=== PATIENT | male | born 1950 | race Caucasian/White ===

== ENCOUNTER 2019-09-15 07:44 | Observation (INO) | payer MEDICARE, BC ==
[2019-09-15] MEDS ORDERED: Diazepam TAB(*) 5 MG ONE (09:06)
[2019-09-15] MEDS ORDERED: diPHENhydraMINE PO* 25 MG ONE (09:06)
[2019-09-15] MEDS ORDERED: Heparin(*) 1000 UNIT/ML 10 ML VIAL CATH LAB IV ONE (09:11)
[2019-09-15] MEDS ORDERED: Midazolam* 1 MG/ML 5 ML VIAL (5 MG) ONE (09:11)
[2019-09-15] MEDS ORDERED: fentaNYL* 50 MCG/ML 2 ML VIAL (100 MCG VIAL) ONE (09:11)
[2019-09-15] MEDS ORDERED: nitroGLYCERIN DRIP* 25,000 MCG/250 ML BTL ONE (09:12)
[2019-09-15] MEDS ORDERED: Heparin 2 UNITS/ML IVPREMIX* 2,000 ML IV ONE (09:12)
[2019-09-15] MEDS ORDERED: VERAPAMIL 2.5 MG/ML 2 ML VIAL ** 5 mg/2 ml ONE (09:12)
[2019-09-15] MEDS ORDERED: Lidocaine 1% INJ* 10 MG/ML 30 ML SDV ONE (09:12)
[2019-09-15] MEDS ORDERED: Iohexol 350 (CONTRAST) 200 ML MDV IV ONE (09:12)
[2019-09-15] MEDS ORDERED: Ticagrelor* 90 MG TAB PO ONE (09:55)
[2019-09-15] MEDS ORDERED: Aspirin 81 mg CHEW TAB* 81 MG TAB.CHEW ONE (10:11)
[2019-09-15] MEDS ORDERED: Acetaminophen TAB* 325 MG PO PRN (11:08)
[2019-09-15] MEDS ORDERED: Nitroglycerin TAB 0.4 MG* 0.4 MG TAB SL PRN (11:13)
[2019-09-15] MEDS ORDERED: oxyCODONE TAB* 5 MG TAB PO PRN (11:13)
[2019-09-15] MEDS ORDERED: NS 0.9% 1000 ML** 1,000 ML IV SCH (11:15)
--- NOTE | 2019-09-15 12:15 | CATH ---
"*[facility]* [address] [address] Main: [phone] [email or web address] Cardiac Catheterization Patient: Darrel Ray : 1950 Study Date: 09/15/2019 Age: 69 Gender: M HR: Height: 69 in /175.3 cm BSA: 2.4 m^2 Weight: 251 lb /114.1 kg BMI: 37.1 kg/m^2 Dumb Waiter Operator: Brian Vergara MD Ordering Physician: Brian Vergara MD Referring Physician: Brian Vergara MD, Jai Norman, --- Jai - Left coronary angiography. - Right coronary angiography. Summary: 1. LAD: Proximal vessel lesion: There is a 95% stenosis. 2. Right posterior descending: Distal vessel lesion: There is a 60% stenosis. Recommendations: 1. The patient should undergo coronary percutaneous coronary intervention. 2. PCI of the left anterior descending coronary and IVUS of the LM stenosis. History: Risk factors: Hypertension. Diabetes mellitus; on therapy with insulin. Dyslipidemia. Family history is significant for coronary artery disease. Labs, prior tests, procedures, and surgery: Stress echocardiography. Abnormal. High risk of ischemia. Blood tests: International normalized ratio (INR) of 0.92. Partial thromboplastin time (PTT) of 37 sec. Serum potassium (K) of 3.8 mEq/l. Serum sodium (Na) of 139 mEq/l. Serum creatinine (current admission) of 0.96 mg/dl. Blood urea nitrogen of 18 mg/dl. Glucose of 190 mg/dl. Platelet count of 204 th/ul. White blood cell count (WBC) of 0.01 th/ul. Red blood cell count (RBC) of 4310 th/ul. Hematocrit of 39 %. Hemoglobin (pre-procedure) of 13.2 g/dl. Study data: Study status: Cardiac cath: elective. Percutaneous coronary intervention: elective. Other percutaneous coronary intervention indication. Location: Catheterization laboratory. Consent: The risks, benefits, and alternatives to the procedure were explained to the patient and/or their healthcare practice representative and written informed consent was obtained. All available pre-procedure labs were reviewed. Height: 175.3 cm. 69 in. Weight: 114.1 kg. 251 lb. Body surface area: 2.4 m^2. Body mass index: 37.1 kg/m^2. Procedure: 1. Initial setup. The patient was brought to the laboratory. Surface ECG leads, blood pressure measurements, and pulse oximetric signals were monitored. A baseline seven lead ECG was recorded. A time out was observed per protocol. 2. Skin preparation. The planned puncture sites were prepped and draped in the usual sterile manner. 3. Local anesthesia. 1% lidocaine was administered. 4. Sedation. was administered. 5. Local anesthesia. 1% lidocaine (1 ml) was administered. 6. Right radial artery access. A 6F Glidesheath Slender sheath was advanced into the vessel. 7. Selective left coronary angiography. A 5F TIG 4.0 catheter was advanced into the left coronary vessel ostium under fluoroscopic guidance. Contrast was injected. Images were obtained in multiple projections. 8. Selective right coronary angiography. A 5F TIG 4.0 catheter was advanced into the right coronary vessel ostium under fluoroscopic guidance. Contrast was injected. Images were obtained in multiple projections. Study completion: Minimal estimated blood loss. All catheters inserted during the procedure were removed. There were no apparent complications. Administered medications: Fentanyl, 25mcg, IV. (Radial) Nitroglycerin, 300mcg, intra-arterially. (Radial) Verapamil, 3mg, intra-arterially. (Radial) Heparin, 3,000units, intra-arterially. Heparin, 4,000units, IV. BRILINTA (Ticagrelor), 180mg, PO. VERSED (Midazolam), for a total dose of 2mg, IV. NaCl 0.9% , infusion , at a rate of 100 ml/hr. Contrast: Omnipaque 350 70 ml (total dose). Radiation: Fluoroscopy dose: 237.4 cGy. Discharge: The patient tolerated the procedure well and was discharged from the lab in stable condition. Findings Coronary arteries: The coronary circulation is right dominant. Left main: Ostial lesion: There is a 30% stenosis. Eccentric ostial stenosis. LAD: Proximal vessel lesion: There is a 95% stenosis. Left circumflex: Normal, 0% stenosis. Right coronary: Normal, 0% stenosis. Right posterior descending: Distal vessel lesion: There is a 60% stenosis. Hemodynamics: + + + |Stage description |Condition 1 -| + + + |Arterial pressure s/d (m)|127/79 (101) | + + + Prepared and electronically signed by Brian Vergara MD 09/15/2019 12:15"
--- NOTE | 2019-09-15 12:43 | CATH ---
STENT REPORT: DATE OF PROCEDURE: 09/15/19 PRIMARY CARE PHYSICIAN: Dr. Sam. VICE PRESIDENT [employer]: Dr. Vergara. PROCEDURES: Stent placement LAD with IVUS guidance 4.0 x 16 Synergy drug-eluting stent. HISTORY: A 69-year-old diabetic with unstable angina, anterior wall ischemia on stress imaging. PROCEDURE ACCESS: Diagnostic by Dr. Vergara, right radial access. INTERVENTIONAL MEDICATIONS: 1. Brilinta 180 mg p.o. loading dose. 2. Heparin 6000 units IV additional. GUIDING CATHETER: 6F VL3.5 wire 0.014 [employer]. IVUS CATHETER: [employer] OptiCross 6. After IVUS, the LAD was stented with a 4 x 16 Synergy drug-eluting stent as a 4.25 was not available. It was then postdilated with a 4.5 x 15 NC balloon 16 atmospheres 50 seconds, repeat IVUS demonstrated incomplete expansion at the very proximal struts of the stent, which were then postdilated with the same balloon to 16 atmospheres for 30 seconds. He had transient angina during IVUS and stent deployment. ANGIOGRAPHY: See Dr. Vergara's report. HEMODYNAMICS: Final BP 138/85. ANGIOGRAPHY: LAD is large with moderate calcification, there is an eccentric 40% to 50% left main st enosis which was evaluated with IVUS. On 2 separate runs, the left main was 4.4 x 5.33 for 19.25 sq mm, and 3.4 x 3.7 mm for area of 9.9 sq mm with an eccentric ostial lesion. The LAD had moderate kizzy cification, distal reference was 3.13 x 3.53, area of 8.54. Proximal reference 3.4 x 3.8 with a medi a to media diameter of 4.7 mm. Post stent deployment and high pressure postdilatation, there was exc ellent apposition and expansion except for the very proximal struts, which were then postdilated, but not repeat IVUS evaluated. CONCLUSION: 1. Insignificant left main stenosis. 2. Severe LAD stenosis, excellent angiographic result with drug-eluting stent placement with high pr essure postdilatation. [id number]/[facility] #: [id number]
[2019-09-15] MEDS ORDERED: Atorvastatin* 80 MG TAB PO SCH (17:00)
[2019-09-15] MEDS: glipiZIDE TAB* 5 MG PO SCH (17:47)
[2019-09-15] MEDS: Psyllium PAK PO SCH (20:43)
[2019-09-15] MEDS: Ticagrelor* 90 MG TAB PO SCH (20:43)
[2019-09-15] MEDS: Nitroglycerin TAB 0.4 MG* 0.4 MG TAB SL PRN (23:50)
[2019-09-16] MEDS: Nitroglycerin TAB 0.4 MG* 0.4 MG TAB SL PRN ×2 (00:04→00:10)
[2019-09-16 06:07] LABS: Anion Gap 9 mmol/L (2-11); Blood Urea Nitrogen 17 mg/dL (6-24); CO2 Carbon Dioxide 25 mmol/L (22-32); Chloride 100 mmol/L (101-111); EGFR African American 83.3 (>60); EGFR Non-African American 68.9 (>60); Glucose 218 mg/dL (70-100); Potassium 3.6 mmol/L (3.5-5.0); Sodium 134 mmol/L (135-145)
[2019-09-16 06:10] LABS: Troponin I 0.03 ng/mL (<0.03)
[2019-09-16] MEDS ORDERED: Potassium Chlor TAB* 20 MEQ TAB.ER PO ONE (08:27)
--- NOTE | 2019-09-16 08:27 | ECHO ---
*[facility]* [place] [address] Fax #: [phone] Limited Transthoracic Echocardiogram Patient: Darrel Ray : 1950 Study Date: 09/16/2019 Age: 69 Gender: M HR: 81 bpm Height: 68.9 in /175 cm BSA: 2.37 m^2 Weight: 244.2 lb /111 kg BMI: 36.2 kg/m^2 *Fiberline Supervisor: Marylou Stevens [facility] *Referring Physician: * Brian Vergara MD *Reading Physician: * Brian Vergara MD Indications: Chest Pain, unspecified. Possible pericardial effusion. History: Risk factors: Hypertension. Diabetes mellitus. Dyslipidemia. Labs, prior tests, procedures, and surgery: Catheterization (09/15/2019). There was a stenosis which was treated with a stent. Conclusions Summary: - Limited echocardiogram to evaluate pericardium s/p PCI. - Pericardium, extracardiac: There is no significant pericardial effusion. - Left ventricle: Systolic function is normal. The estimated ejection fraction is 55-60%. - Right ventricle: Systolic function is normal. Study data: Transthoracic echocardiogram, limited study. Procedure: Transthoracic echocardiography was performed. Image quality was adequate. Location: Bedside. Patient status: Inpatient. Patient room number: ICU 1. Rhythm: Normal sinus rhythm. Findings Left ventricle: Systolic function is normal. The estimated ejection fraction is 55-60%. Right ventricle: Systolic function is normal. Pericardium: There is no significant pericardial effusion. Prepared and electronically signed by Brian Vergara MD 09/16/2019 08:26
[2019-09-16] MEDS: Ticagrelor* 90 MG TAB PO SCH (08:52)
[2019-09-16] MEDS: Psyllium PAK PO SCH (08:52)
[2019-09-16] MEDS: glipiZIDE TAB* 5 MG PO SCH (08:52)
[2019-09-16 08:54] LABS: ABS Eosinophils 0.2 10^3/ul (0-0.6); ABS Lymphocytes 1.4 10^3/ul (1.0-4.8); ABS Monocytes 0.5 10^3/ul (0-0.8); ABS Neutrophils 3.9 10^3/ul (1.5-7.7); Eosinophil % 3.3 %; Hematocrit 38 % (42-52); Hemoglobin 13.1 g/dL (14.0-18.0); Lymphocyte % 23.5 %; Mean Corpuscular HGB Conc 35 g/dL (31-36); Mean Corpuscular Hemoglobin 31 pg (27-31); Mean Corpuscular Volume 89 fL (80-94); Mean Platelet Volume 7.7 fL (7.4-10.4); Platelet Count 266 10^3/uL (150-450); Red Blood Count 4.23 10^6 /uL (4.18-5.48); Red Cell Distribution Width 15 % (10-15); White Blood Count 6.1 10^3/uL (3.5-10.8)
[2019-09-16] MEDS ORDERED: CMC:SitaGLIPtin (NF) 100 MG TAB PO SCH (09:00)
[2019-09-16] MEDS ORDERED: Lisinopril TAB* 10 MG PO SCH (09:00)
[2019-09-16] MEDS ORDERED: amLODIPine TAB* 5 MG PO SCH (09:00)
[2019-09-16] MEDS ORDERED: Potassium Chlor TAB* 20 MEQ TAB.ER PO SCH (09:00)
[2019-09-16] MEDS ORDERED: Allopurinol TAB* 300 MG PO SCH (09:00)
[2019-09-16] MEDS ORDERED: Metoprolol Succinate XL TAB* 25 MG PO SCH (09:00)
[2019-09-16] MEDS ORDERED: Chlorthalidone TAB* 50 MG PO SCH (09:00)
[2019-09-16 09:27] VITALS: BP 153/88
--- NOTE | 2019-09-16 12:35 | DS ---
DISCHARGE SUMMARY: DATE OF ADMISSION: 09/15/19 DATE OF DISCHARGE: ATTENDING PHYSICIAN: Dr. Brian Vergara, Cardiology.* (SUSAN SCHMID NP) PRIMARY CARE PHYSICIAN: Dr. Te Silver. PRIMARY VOICE AND DATA TECHNICIAN: Dr. Brian Vergara. ADMITTING DIAGNOSES: 1. Abnormal stress test revealing akinetic anterior wall with complaints of typical chest pain, dyspnea on exertion. 2. History of hyperlipidemia. 3. History of diabetes. 4. Possible rheumatoid arthritis, to see Rheumatology in near future. DISCHARGE DIAGNOSES: 1. 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 b.i.d., metoprolol 25 mg a day, Lipitor 80 mg p.o. q.h.s. 2. Newly found coronary artery disease, on aspirin, statin, beta-blockade therapy. 3. History of hyperlipidemia. Goal LDL is less than 70. Now on Lipitor 80 q.h.s. Will need repeat fasting lipid panel and liver function tests in 6 to 8 weeks' time. 4. Resting sinus tachycardia during admission; troponin minimally elevated consistent with recent PCI. Echo revealed preserved LVEF, no focal wall motion abnormality. He denies recurrent symptoms. ECG did not reveal acute in-stent thrombosis. He admits to holding metoprolol for 48 hours prior to procedure, this is likely related to beta-blockade withdrawal. Denies alcohol use. 5. History of diabetes. We will resume home medications, however, he was asked to hold metformin for a total of 48 hours, he may resume on 09/17/19. He is aware to get a repeat chemistry on 09/19/19. PROCEDURES PERFORMED: The patient had a cardiac catheterization performed on by Dr. Brian Vergara due to abnormal cardiovascular stress test revealing anterior akinesis. According to left heart cath report, there was: 1. LAD proximal vessel 95% stenosis. 2. Left main ostial lesion. There is 30% stenosis. 3. Left circumflex normal, no stenosis. 4. Right coronary artery, normal, no stenosis; right PDA 60% stenosis. INTERVENTIONS PERFORMED: The patient underwent successful 4.0 x 16 mm Synergy drug- eluting stent to LAD by Dr. Farhad Mitchell. COMPLICATIONS: None. Per procedure report, he had transient angina during IVUS and stent deployment. He had insignificant left main stenosis by IVUS. COURSE OF HOSPITAL STAY: This is a pleasant 69-year-old male patient, who was evaluated in our practice on 09/04/19 due to positive stress test revealing akinetic anterior wall abnormality. He has been complaining of chest pain and dyspnea on exertion, thus he was asked to present to [facility] for elective cardiac catheterization on 09/15/19. Prior to having procedure performed, he had basic blood work on 09/04/19, white count was 7.8, hemoglobin 13.2, hematocrit 39, platelets 204. INR 0.92. Sodium 139, potassium 3.8, creatinine 0.96. He had successful drug-eluting stent placement to LAD. IVUS of left main revealed nonsignificant stenosis. He has known residual 60% PDA lesion that we will treat medically. Postprocedure, he developed resting tachycardia, rate 100 to 110. Troponin was minimally elevated at 0.03 consistent with recent intervention. Echocardiogram was obtained. LVEF was preserved with no focal wall motion abnormality, has not had recurrent pain since then. He states that he held metoprolol for 48 hours total prior to procedure. This is likely related to beta-blockade withdrawal. He denies alcohol use. Labs are unremarkable. He has been up and ambulating with no complications. Right radial access site was examined. There is no evidence of hematoma, no thrill, 3 + radial pulse palpated, good sensation, cap refill less than 3. This morning' s blood work was reviewed. Sodium was 134, potassium 3.6, chloride 100, carbon dioxide 25, creatinine 1.06, troponin 0.03, glucose 218. CBC is pending. Potassium was replaced with 40 mEq total today. Pending no complications, he will be discharged home later today in stable condition. Physical examination this morning is benign. He has had occasional VPCs, no VT on telemetry. ECG this morning revealed normal sinus rhythm, rate [address] segment elevation appreciated. There was very minimal lateral ST segment depression noted. DISCHARGE CONDITION: Stable to be discharged home. Blood work to be obtained upon discharge. The patient is to have a repeat chemistry 09/19/19 to reevaluate renal function and potassium. He is requesting that this be done at [facility] because he resides in [facility]. DISCHARGE MEDICATIONS: 1. Aspirin 81 mg a day. 2. Brilinta 90 mg p.o. b.i.d. 3. Januvia 100 mg p.o. daily. 4. Potassium chloride 20 mEq daily. 5. Nitroglycerin 0.4 mg sublingual q.5 minutes p.r.n. 6. Metoprolol 25 mg a day. 7. Lisinopril 20 mg a day. 8. Glipizide 5 mg p.o. b.i.d. 9. Chlorthalidone 12.5 mg p.o. daily. 10. Lipitor 80 mg p.o. q.h.s. 11. Norvasc 10 mg a day. 12. Allopurinol 300 mg p.o. daily. 13. Tylenol 650 mg p.o. q.4h. p.r.n. FOLLOWUP APPOINTMENTS: The patient is to follow up with PCP in 7 to 10 days. He is to follow up with Dr. Brian Vergara on 09/23/19 at 2:[address] Brian Vergara has seen and examined the patient and agrees with the above assessment and plan. SUSAN SCHMID NP [id number]/[facility] #: [id number] [facility] HOSPITALEster
== END 2019-09-16 11:49 | disposition home or self-care (01) ==
LOC: CHICATH 07:44 → ICU 11:08
PROVIDERS: ADMIT Specialist; ATTEND Specialist
DX: I25.110 Atherosclerotic heart disease of native coronary artery with unstable angina pectoris (principal); R07.9 Chest pain, unspecified; R06.09 Other forms of dyspnea; E78.5 Hyperlipidemia, unspecified; E11.9 Type 2 diabetes mellitus without complications; M10.9 Gout, unspecified; Z86.73 Personal history of transient ischemic attack (TIA), and cerebral infarction without residual deficits; I10 Essential (primary) hypertension; Z79.899 Other long term (current) drug therapy; R94.39 Abnormal result of other cardiovascular function study; Z79.84 Long term (current) use of oral hypoglycemic drugs; Z79.82 Long term (current) use of aspirin
CPT/HCPCS: 36415; 80048; 84484; 85025; 85347; 87641; 93005; 93308; 93454; 96360; 96361; 99156; 99157; A9270-GY; C1725; C1769; C1876; C1887; C9600-LD; G0378; J1644; J2250; J3010

== ENCOUNTER 2022-07-15 01:47 | Inpatient (IN) ==
[2022-07-15] MEDS ORDERED: nitroGLYCERIN DRIP 25,000 MCG/250 ML BTL ONE (01:54)
[2022-07-15] MEDS ORDERED: Heparin 2 UNITS/ML 1000 mls 2,000 ML IV ONE (01:54)
[2022-07-15] MEDS ORDERED: Midazolam 5 mg/5 ml VIAL 1 mg/ml 5 ml VIAL (5 mg) ONE (01:54)
[2022-07-15] MEDS ORDERED: Heparin 1,000 UNIT/ML 10 ml (10,000 UNITS) CATHLAB/DIALYSIS ONE ×2 (01:54→02:31)
[2022-07-15] MEDS ORDERED: fentaNYL 100 mcg/2 ml 50 MCG/ML VIAL ONE ×2 (01:54→03:15)
[2022-07-15] MEDS ORDERED: niCARdipine 0.1MG/ML IVPREMIX 20 MG/200 ML BAG IV ONE (01:55)
[2022-07-15] MEDS ORDERED: Lidocaine 1% MPF 5 ML VIAL ONE (01:55)
[2022-07-15] MEDS ORDERED: Iohexol 350 (CONTRAST) 100 ML PAK IV ONE (01:56)
[2022-07-15 02:13] LABS: ABS Basophils 0.1 10^3/ul (0-0.2); ABS Eosinophils 0.2 10^3/ul (0-0.6); ABS Lymphocytes 1.2 10^3/ul (1.0-4.8); ABS Monocytes 0.6 10^3/ul (0-0.8); ABS Neutrophils 9.1 10^3/ul (1.5-7.7); Eosinophil % 1.9 %; Hematocrit 41 % (42-52); Hemoglobin 13.3 g/dL (14.0-18.0); Lymphocyte % 10.8 %; Mean Corpuscular HGB Conc 33 g/dL (31-36); Mean Corpuscular Hemoglobin 30 pg (27-31); Mean Corpuscular Volume 93 fL (80-94); Mean Platelet Volume 8.6 fL (7.4-10.4); Platelet Count 208 10^3/uL (150-450); Red Blood Count 4.39 10^6 /uL (4.18-5.48); Red Cell Distribution Width 16 % (10-15); White Blood Count 11.2 10^3/uL (3.5-10.8)
[2022-07-15 02:36] LABS: High Sens Troponin Baseline 169 pg/mL (<20)
[2022-07-15] MEDS ORDERED: Heparin 2 UNITS/ML 1000 mls 1,000 ML IV ONE (02:50)
[2022-07-15 03:08] LABS: ALT 24 U/L (7-52); Albumin 4.4 g/dL (3.2-5.2); Albumin/Globulin Ratio 1.7 (1-3); Alkaline Phosphatase 101 U/L (35-149); Blood Urea Nitrogen 34 mg/dL (6-24); CO2 Carbon Dioxide 24 mmol/L (22-32); Calcium 9.7 mg/dL (8.6-10.3); Chloride 101 mmol/L (101-111); Globulin 2.6 g/dL (2-4); Glucose 194 mg/dL (70-100); Sodium 136 mmol/L (135-145)
[2022-07-15 03:14] LABS: Anion Gap 11 mmol/L (2-11)
[2022-07-15] MEDS ORDERED: Ondansetron 4 mg VIAL 2 MG/ML 2 ml VIAL ONE (03:17)
[2022-07-15] MEDS ORDERED: Ondansetron 4 mg VIAL 2 MG/ML 2 ml VIAL IV PRN (03:27)
[2022-07-15] MEDS ORDERED: NS 0.9% 1000 ml BAG 1,000 ML IV SCH (03:30)
[2022-07-15 05:08] LABS: Potassium Redraw 3.9 mmol/L (3.5-5.0)
[2022-07-15] MEDS ORDERED: Dextrose 50% Syringe 50 ml 25 GM/50 ML SYRINGE IV PUSH PRN (05:22)
[2022-07-15 08:33] LABS: Blood Urea Nitrogen 34 mg/dL (6-24); CO2 Carbon Dioxide 25 mmol/L (22-32); Calcium 9.6 mg/dL (8.6-10.3); Chloride 101 mmol/L (101-111); Glucose 157 mg/dL (70-100); Sodium 136 mmol/L (135-145); eGFR CKD-EPI 44.3 (>60)
[2022-07-15 08:54] LABS: Urine Appearance Clear; Urine Bilirubin Negative (Negative); Urine Blood 3+ (Negative); Urine Color Straw; Urine Glucose 3+(>=500 mg/dL) (Negative); Urine Ketones Trace (Negative); Urine Nitrite Negative (Negative); Urine Protein Negative (Negative); Urine Specific Gravity 1.039 (1.002-1.030); Urine Urobilinogen Negative (Negative)
[2022-07-15 09:03] LABS: Anion Gap 10 mmol/L (2-11)
[2022-07-15 09:08] LABS: Urine Creatinine Concentration 58.09 mg/dL
[2022-07-15 09:12] LABS: Urine Bacteria Absent (Absent); Urine Red Blood Cell 2+(6-10/hpf) (Absent); Urine White Blood Cell 1+(6-10/hpf) (Absent)
[2022-07-16 03:26] LABS: ABS Basophils 0.1 10^3/ul (0-0.2); ABS Eosinophils 0.2 10^3/ul (0-0.6); ABS Lymphocytes 1.3 10^3/ul (1.0-4.8); ABS Monocytes 0.8 10^3/ul (0-0.8); ABS Neutrophils 5.5 10^3/ul (1.5-7.7); Eosinophil % 2.9 %; Hematocrit 37 % (42-52); Hemoglobin 12.3 g/dL (14.0-18.0); Mean Corpuscular HGB Conc 33 g/dL (31-36); Mean Corpuscular Hemoglobin 30 pg (27-31); Mean Corpuscular Volume 92 fL (80-94); Mean Platelet Volume 8.4 fL (7.4-10.4); Platelet Count 195 10^3/uL (150-450); Red Blood Count 4.04 10^6 /uL (4.18-5.48); Red Cell Distribution Width 16 % (10-15); White Blood Count 7.9 10^3/uL (3.5-10.8)
[2022-07-16 03:56] LABS: Albumin/Globulin Ratio 1.5 (1-3); Calcium 9.6 mg/dL (8.6-10.3); Globulin 2.6 g/dL (2-4); HDL Cholesterol 33.3 mg/dL; Potassium 3.8 mmol/L (3.5-5.0); Total Bilirubin 0.9 mg/dL (0.2-1.0); Total Protein 6.6 g/dL (6.4-8.9)
[2022-07-16] MEDS ORDERED: Potassium Chlor 20 meq TAB.ER PO ONE (07:07)
[2022-07-17 06:47] LABS: ABS Basophils 0.1 10^3/ul (0-0.2); ABS Eosinophils 0.4 10^3/ul (0-0.6); ABS Lymphocytes 1.6 10^3/ul (1.0-4.8); ABS Monocytes 0.6 10^3/ul (0-0.8); ABS Neutrophils 4.3 10^3/ul (1.5-7.7); Eosinophil % 5.4 %; Hematocrit 38 % (42-52); Hemoglobin 12.8 g/dL (14.0-18.0); Lymphocyte % 22.7 %; Mean Corpuscular HGB Conc 33 g/dL (31-36); Mean Corpuscular Hemoglobin 31 pg (27-31); Mean Corpuscular Volume 92 fL (80-94); Mean Platelet Volume 8.6 fL (7.4-10.4); Platelet Count 188 10^3/uL (150-450); Red Blood Count 4.16 10^6 /uL (4.18-5.48); Red Cell Distribution Width 16 % (10-15); White Blood Count 6.9 10^3/uL (3.5-10.8)
[2022-07-17 07:12] LABS: Calcium 9.6 mg/dL (8.6-10.3); Magnesium 1.9 mg/dL (1.9-2.7); eGFR CKD-EPI 46.7 (>60)
[2022-07-17] MEDS ORDERED: Perflutren Lipid Microsphere 3 ML VIAL ONE (13:29)
[2022-07-17 15:35] VITALS: BP 134/78
== END 2022-07-17 18:10 | disposition home or self-care (01) | DRG 247 ==
LOC: ED 01:47 → CHICATH 02:13 → ICU 03:28 → MEDTELE 07-16 22:10
PROVIDERS: ADMIT Internal Medicine; ATTEND Internal Medicine